=== PATIENT | male | born 1985 | race Caucasian/White ===

== ENCOUNTER 2019-09-14 20:53 | Inpatient (IN) | payer OTHER ==
[2019-09-14 21:53] LABS: Appearance,Urine Clear (Clear); Bilirubin,Urine Negative (Negative); Blood,Urine Negative (Negative); Color,Urine Light Yellow; Glucose,Urine (UA) Negative (Negative); Ketones,Urine Negative (Negative); Leukocyte Esterase,Urine Negative (Negative); Nitrite,Urine Negative (Negative); PH, Urine 6.5 (5.0-8.0); Protein,Urine Negative (Negative); Specific Gravity,Urine 1.003 (1.001-1.035); Urobilinogen,Urine <2.0 mg/dL (<2.0)
[2019-09-14 22:38] LABS: Amphetamine Screen,Urine Not Detected (NotDetected); Barbiturate Screen,Urine Not Detected (NotDetected); Benzodiazepines Screen,Urine Not Detected (NotDetected); Cocaine Screen,Urine Not Detected (NotDetected); Methadone Screen, Urine Not Detected (NotDetected); Opiate Screen,Urine Not Detected (NotDetected); Oxycodone Screen, Urine Not Detected (NotDetected); Phencyclidine Screen,Urine Not Detected (NotDetected); Tricyclic Antidepressant,Urine Not Detected (NotDetected); Urn Cannabinoid Scrn Not Detected (NotDetected)
--- NOTE | 2019-09-14 22:45 | ED ---
General Adult HPI - General Chief complaint: Psychiatric Symptoms Stated complaint: Mental Health Time Seen by Provider: 09/14/19 21:09 Source: patient, RN notes reviewed, old records reviewed Mode of arrival: ambulatory Limitations: no limitations - History of Present Illness Initial comments: 33-year-old male patient no pertinent past psychiatric history of present significant complaint approximately one week depression, suicidal ideations. Denies anything hurt himself or hurt any other people today. Denies any plan. Support. Alcohol and occasionally using marijuana. Denies any physical complaints. Systemic: Pt denies fatigue, fever/chills, rash. Pt denies weakness, night sweats, weight loss. Neuro: Pt denies headache, visual disturbances, syncope or pre-syncope. HEENT: Pt denies ocular discharge or irritation, otalgia, rhinorrhea, pharyngitis or notable lymphadenopathy. Cardiopulmonary: Pt denies chest pain, SOB, heart palpitations, dyspnea on exertion. Abdominal/GI: Pt denies abdominal pain, n/v/d. : Pt denies dysuria, burning w/ urination, frequency/urgency. Denies new onset urinary or bowel incontinence. MSK: Pt denies myalgia, loss of strength or function in extremities. Neuro: Pt denies new onset weakness, paresthesias. - Related Data Allergies Allergy/AdvReac Type Severity Reaction Status Date / Time No Known Allergies Allergy Verified 09/14/19 21:08 Review of Systems ROS Statement: Those systems with pertinent positive or pertinent negative responses have been documented in the HPI. ROS Other: All systems not noted in ROS Statement are negative. Past Medical History Past Medical History: No Reported History History of Any Multi-Drug Resistant Organisms: None Reported Past Surgical History: No Surgical Hx Reported Past Psychological History: Depression Smoking Status: Current every day smoker Past Alcohol Use History: Daily, Heavy Past Drug Use History: Marijuana General Exam - General Exam Comments Initial Comments: Constitutional: NAD, AOX3, Pt has pleasant affect. HEENT: NC/AT, trachea midline, neck supple, no lymphadenopathy. Posterior pharynx non erythematous, without exudates. External ears appear normal, without discharge. Mucous membranes moist. Eyes PERRLA, EOM intact. There is no scleral icterus. No pallor noted. Cardiopulmonary: RRR, no murmurs, rubs or gallops, no JVD noted. Lungs CTAB in anterior and posterior whittaker. Abdominal exam: Abdomen soft and non-distended. Abdomen non-tender to palpation in all 4 quadrants. Neuro: CN II-XII grossly intact. No nuchal rigidity. No raccon eyes, no mcmahon sign, no hemotympanum. No cervical spinal tenderness. MSK: No posterior calf tenderness bilaterally, homans sign negative bilaterally. Posterior tibialis and radial pulse +2 bilaterally. Sensation intact in upper and lower extremities. Full active ROM in upper and lower extremities, 5/5 stregnth. Limitations: no limitations Course Vital Signs 09/14/19 21:02 Temperature 98.1 F Pulse Rate 97 Respiratory 18 Rate Blood Pressure 146/95 O2 Sat by Pulse 98 Oximetry Medical Decision Making - Medical Decision Making 33-year-old male patient presents to ED for chief complaint of depression, suicidal ideations. Patient vital signs are stable, afebrile. Physical exam didn't display acute pathology. Patient evaluated EPS recommended for admission. Case discussed with Dr. Cordero. - Lab Data Lab Results 09/14/19 Range/Units 21:13 Urine Color Light Yellow Urine Appearance Clear (Clear) Urine pH 6.5 (5.0-8.0) Ur Specific [place] 1.003 (1.001-1.035) Urine Protein Negative (Negative) Urine Glucose (UA) Negative (Negative) Urine Ketones Negative (Negative) Urine Blood Negative (Negative) Urine Nitrite Negative (Negative) Urine Bilirubin Negative (Negative) Urine Urobilinogen <2.0 (<2.0) mg/dL Ur Leukocyte Esterase Negative (Negative) Urine Opiates Screen Not Detected (NotDetected) Ur Oxycodone Screen Not Detected (NotDetected) Urine Methadone Screen Not Detected (NotDetected) Ur Propoxyphene Screen Not Detected (NotDetected) Ur Barbiturates Screen Not Detected (NotDetected) U Tricyclic Antidepress Not Detected (NotDetected) Ur Phencyclidine Scrn Not Detected (NotDetected) Ur Amphetamines Screen Not Detected (NotDetected) U Methamphetamines Scrn Not Detected (NotDetected) U Benzodiazepines Scrn Not Detected (NotDetected) Urine Cocaine Screen Not Detected (NotDetected) U Marijuana (THC) Screen Not Detected (NotDetected) Disposition Clinical Impression: Depression Disposition: ADMITTED IP TO THIS HOSP Condition: Serious Is patient prescribed a controlled substance at d/c from ED?: No Referrals: None,Stated [Primary Care Provider] - 1-2 days
[2019-09-15] MEDS ORDERED: MAGNESIUM HYDROXIDE 2,400 MG/10 ML CUP PO PRN (01:20)
[2019-09-15] MEDS ORDERED: ACETAMINOPHEN TAB 325 MG TAB PO PRN (01:20)
[2019-09-15] MEDS ORDERED: LORazepam 1 MG TAB PO PRN (01:20)
[2019-09-15] MEDS ORDERED: ZIPRASIDONE 20 MG VIAL IM PRN (01:20)
[2019-09-15] MEDS ORDERED: LORazepam 2 MG/ML INJ IM PRN (01:23)
[2019-09-15] MEDS: NICOTINE 7MG/24HR PATCH TRANSDERM SCH (08:56)
[2019-09-15 09:50] LABS: Basophils # (A) 0.1 k/uL (0-0.2); Basophils % (A) 1 %; Eosinophils # (A) 0.1 k/uL (0-0.7); Eosinophils % (A) 1 %; HCT 50.9 % (39.0-53.0); Lymphocytes # (A) 1.3 k/uL (1.0-4.8); Lymphocytes % (A) 17 %; MCHC 33.4 g/dL (31.0-37.0); MCV 86.9 fL (80.0-100.0); Mean Platelet Volume 7.5; Monocytes # (A) 0.5 k/uL (0-1.0); Monocytes % (A) 7 %; Neutrophils # (A) 5.8 k/uL (1.3-7.7); Neutrophils % (A) 73 %; Platelet Count 320 k/uL (150-450); RBC 5.85 m/uL (4.30-5.90); RDW 12.1 % (11.5-15.5)
[2019-09-15 10:14] LABS: Albumin 4.9 g/dL (3.5-5.0); Calcium 10.7 mg/dL (8.4-10.2); Potassium 5.5 mmol/L (3.5-5.1); Total Protein 8.1 g/dL (6.3-8.2)
[2019-09-15] MEDS: SERTRALINE 50 MG TAB PO SCH (11:04)
[2019-09-15 12:38] VITALS: BMI 31.8
[2019-09-15] MEDS: MAG HYDROX/AL HYDROX/SIMETH 30 ML CUP PO PRN (16:35)
--- NOTE | 2019-09-15 16:45 | P.HP ---
Psychiatric H&P - . H&P Date: 09/15/19 History & Physical: IDENTIFYING DATA: The patient is a 33-year-old single male admitted to the psychiatric unit voluntarily with complaints of depression and suicidal ideation. HISTORY OF PRESENT ILLNESS: He described becoming increasingly depressed after breakup of a long-term relationship 5 months ago. He had living with his fianc for 5 years. 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 He became close to her youngest son and she accepted the short custody of his 9-year-old son. He talked about being happy and feeling that he has achieved the goals of his life of having a b usiness, long-term partner, family and home. However, she ended a relationship and asked him to leave the home when she learned that she had not an affair. He described a "indiscretions" where he became intoxicated with alcohol and Adderall at a wedding. He alleged she has little memory of the event. His fianc learned of the affair about one week afterwards. He has since been living with a friend. They speak on a daily basis and the relationship appears car trouble. However she no longer trusts him and does not want to resumed her former relationship. He described increasing feelings of depression, hopelessness, helplessness and worthlessness. He presented to ER because he's been experiencing more frequent and distressing suicidal thoughts. These thoughts are passive in nature where he wished that he were . He denied that he suicide intent or plan. Other depressive symptoms included lack of energy, decreased concentration, insomnia with photograph retoucher awakening, decreased energy and fatigue and persistent feelings of guilt and remorse. He denied experiencing such psychotic symptoms of hallucinations, paranoia, thought insertion etc. He described chronic feelings of tension that he relates to his early upbringing but denied periods of increased anxiety that reach crescendo consistent with a panic attack. He denied history of elevated mood or sustained irritability consistent with graciela or hypomania. He has history of heavy alcohol use but alleged that he has significantly cut down with his drinking since his separation with his fianc. He recently star yang smoking marijuana in the evening as a means to fall asleep. In the past, his fianc is complaining to him about his drinking. He denied that he is overwhelmed and morning to have a drink steady his nerves or "open his eyes". He is never been any substance abuse treatment program is never attended AA. He denied use of other drugs to get high, help her sleep or changes mood. PAST PSYCHIATRIC HISTORY: He has no history of mental health or psychiatric treatment. This is his first psychiatric hospitalization. PAST MEDICAL HISTORY: He has no major medical problems. ALLERGIES: No ALLERGIES SUBSTANCE USE HISTORY: He has never been substance abuse treatment program. FAMILY PSYCHIATRIC/SUBSTANCE USE HISTORY: His father has a history of depression and he alleges father was admitted to this unit for the treatment of depression and suicidal ideation. LEGAL HISTORY: Denied SOCIAL HISTORY: His parents when he was 10 years old. His mother left his father moved in with a 19-year-old man. His parents share joint custody until he was 18 years old when he lives with his father. He talked about his mother frequently moving and needing to change schools. He graduated from high school and completed trade program for [employer]. He is single and has one child out of wedlock. He shares joint custody. 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 MENTAL STATUS EXAM: He presented as a casually groomed 33-year-old male with multiple tattoos from the arms to the neck. He made eye contact and attended the interview. He had no prominent physical abnormalities. He had a distressed facial expression. He was alert and oriented to person, place and time. He showed psychomotor retardation but no abnormal movements. His gait was slow but steady. His speech was spontaneous with decreased rate, rhythm and volume. He had no articulation difficulties. His affect was depressed and unreactive. He describes suicidal ideation and wishes but denied intent or plan. He denied homicidal ideation. He expressed feelings of hopelessness, helplessness or worthlessness. He ruminated about his former relationship and h is sexual indiscretion. He did not express ideas reference, paranoid ideation or delusions. His thinking was abstract and associations were coherent, logical and goal directed. He denied hallucinations and did not appear to responding to internal stimuli. Global impression of intellect is average. He is aware of his mental health needs. STRENGTHS: Good physical health, stable employment, stable income, stable housing WEAKNESSES: Alcohol use, recent breakup of long-term relationship IMPRESSION: He has a 33-year-old male who presented to unit with a history of depression and depressive symptoms consistent with a major depressive disorder. The impression on [place] related to a specific stress involving the breakup of long-term relationship. He has no history of mental health treatment or psychiatric problems. He described a history of heavy alcohol use problems certain whether he met criteria for an alcohol use disorder. He should best be treated inpatient basis with combination of psychopharmacology and multimodal therapy. PRINCIPLE DIAGNOSIS: Depressed disorder severe single episode without psychosis, rule out alcohol use disorder RECOMMENDATION: Admitted to the psychiatric unit. Safety precautions. Consult medicine for initial physical exam and medical history. bag worker completed initial psychosocial assessment and coordinate discharge and aftercare. Begin Zoloft 50 mg daily and Seroquel 25 mg at bedtime and titrated according to clinical response and tolerance. Encourage participation in therapeutic groups and activities. Evaluate clinical status response to treatment daily basis. Allergies Allergy/AdvReac Type Severity Reaction Status Date / Time No Known Allergies Allergy Verified 09/14/19 23:57 Vital Signs Temp 98.8 F 09/15/19 06:58 Pulse 86 09/15/19 06:58 Resp 18 09/15/19 06:58 BP 110/65 09/15/19 06:58 Pulse Ox 98 09/14/19 23:58 Intake & Output 09/14/19 09/15/19 09/15/19 18:59 06:59 18:59 Weight 101.151 kg 100.5 kg Laboratory Last Values WBC 8.0 k/uL (3.8-10.6) 09/15/19 09:32 RBC 5.85 m/uL (4.30-5.90) 09/15/19 09:32 Hgb 17.0 gm/dL (13.0-17.5) 09/15/19 09:32 Hct 50.9 % (39.0-53.0) 09/15/19 09:32 MCV 86.9 fL (80.0-100.0) 09/15/19 09:32 MCH 29.0 pg (25.0-35.0) 09/15/19 09:32 MCHC 33.4 g/dL (31.0-37.0) 09/15/19 09:32 RDW 12.1 % (11.5-15.5) 09/15/19 09:32 Plt Count 320 k/uL (150-450) 09/15/19 09:32 Neutrophils % 73 % 09/15/19 09:32 Lymphocytes % 17 % 09/15/19 09:32 Monocytes % 7 % 09/15/19 09:32 Eosinophils % 1 % 09/15/19 09:32 Basophils % 1 % 09/15/19 09:32 Neutrophils # 5.8 k/uL (1.3-7.7) 09/15/19 09:32 Lymphocytes # 1.3 k/uL (1.0-4.8) 09/15/19 09:32 Monocytes # 0.5 k/uL (0-1.0) 09/15/19 09:32 Eosinophils # 0.1 k/uL (0-0.7) 09/15/19 09:32 Basophils # 0.1 k/uL (0-0.2) 09/15/19 09:32 Sodium 139 mmol/L (137-145) 09/15/19 09:32 Potassium 5.5 mmol/L (3.5-5.1) H 09/15/19 09:32 Chloride 100 mmol/L (98-107) 09/15/19 09:32 Carbon Dioxide 30 mmol/L (22-30) 09/15/19 09:32 Anion Gap 9 mmol/L 09/15/19 09:32 BUN 10 mg/dL (9-20) 09/15/19 09:32 Creatinine 1.25 mg/dL (0.66-1.25) 09/15/19 09:32 Est GFR (CKD-EPI)AfAm 89 (>60 ml/min/1.73 sqM) 09/15/19 09:32 Est GFR (CKD-EPI)NonAf 77 (>60 ml/min/1.73 sqM) 09/15/19 09:32 Glucose 95 mg/dL (74-99) 09/15/19 09:32 Calcium 10.7 mg/dL (8.4-10.2) H 09/15/19 09:32 Total Bilirubin 1.0 mg/dL (0.2-1.3) 09/15/19 09:32 AST 33 U/L (17-59) 09/15/19 09:32 ALT 30 U/L (4-49) 09/15/19 09:32 Alkaline Phosphatase 66 U/L (38-126) 09/15/19 09:32 Total Protein 8.1 g/dL (6.3-8.2) 09/15/19 09:32 Albumin 4.9 g/dL (3.5-5.0) 09/15/19 09:32 Urine Color Light Yellow 09/14/19 21:13 Urine Appearance Clear (Clear) 09/14/19 21:13 Urine pH 6.5 (5.0-8.0) 09/14/19 21:13 Ur Specific [place] 1.003 (1.001-1.035) 09/14/19 21:13 Urine Protein Negative (Negative) 09/14/19 21:13 Urine Glucose (UA) Negative (Negative) 09/14/19 21:13 Urine Ketones Negative (Negative) 09/14/19 21:13 Urine Blood Negative (Negative) 09/14/19 21:13 Urine Nitrite Negative (Negative) 09/14/19 21:13 Urine Bilirubin Negative (Negative) 09/14/19 21:13 Urine Urobilinogen <2.0 mg/dL (<2.0) 09/14/19 21:13 Ur Leukocyte Esterase Negative (Negative) 09/14/19 21:13 Urine Opiates Screen Not Detected (NotDetected) 09/14/19 21:13 Ur Oxycodone Screen Not Detected (NotDetected) 09/14/19 21:13 Urine Methadone Screen Not Detected (NotDetected) 09/14/19 21:13 Ur Propoxyphene Screen Not Detected (NotDetected) 09/14/19 21:13 Ur Barbiturates Screen Not Detected (NotDetected) 09/14/19 21:13 U Tricyclic Antidepress Not Detected (NotDetected) 09/14/19 21:13 Ur Phencyclidine Scrn Not Detected (NotDetected) 09/14/19 21:13 Ur Amphetamines Screen Not Detected (NotDetected) 09/14/19 21:13 U Methamphetamines Scrn Not Detected (NotDetected) 09/14/19 21:13 U Benzodiazepines Scrn Not Detected (NotDetected) 09/14/19 21:13 Urine Cocaine Screen Not Detected (NotDetected) 09/14/19 21:13 U Marijuana (THC) Screen Not Detected (NotDetected) 09/14/19 21:13 09/15/19 10:25
[2019-09-15 20:40] LABS: African American GFR (CKD) >90 (>60 ml/min/1.73 sqM); Anion Gap 8 mmol/L; Blood Urea Nitrogen 11 mg/dL (9-20); Calcium 10.1 mg/dL (8.4-10.2); Carbon Dioxide 28 mmol/L (22-30); Chloride 101 mmol/L (98-107); Glucose 112 mg/dL (74-99); Non-African American GFR(CKD) >90 (>60 ml/min/1.73 sqM); Potassium 4.4 mmol/L (3.5-5.1); Sodium 137 mmol/L (137-145)
[2019-09-15] MEDS: QUEtiapine 25 MG TAB PO SCH (21:48)
--- NOTE | 2019-09-15 22:03 | P.MDCNMH ---
History of Present Illness H&P Date: 09/15/19 Chief Complaint: medical evaluation 33 year old male no significant past medical history patient comes in voluntarily seeking help , due to depressed mood and suicidal ideation, never been diagnosed with mental health problems , does not take any medications at home. he currently denies any suicidal or homicidal ideation. he reports overwhelming social and financial issues at home currently denies any fever, chills, chest pain or trouble breathing, denies any abd pain nausea or vomiting . Review of Systems Pertinent positives as noted in HPI. All other systems were reviewed and are negative Past Medical History Past Medical History: No Reported History History of Any Multi-Drug Resistant Organisms: None Reported Past Surgical History: Hernia Repair Additional Past Surgical History / Comment(s): Hernia Repair Surgery as a child. Past Anesthesia/Blood Transfusion Reactions: No Reported Reaction Past Psychological History: Depression Smoking Status: Current every day smoker Past Alcohol Use History: Abuse, Daily, Heavy Additional Past Alcohol Use History / Comment(s): Pt. admits to daily alcohol use of about 6 beers per day. Past Drug Use History: Marijuana, Prescription Drug Abuse Additional Drug Use History / Comment(s): Pt. admits that he was over taking Adderral 5 months ago during a wedding. Pt. admits to marijuana use rare use. --UDS negative. - Past Family History Father Family Medical History: Myocardial Infarction ([place]) Additional Family Medical History / Comment(s): -Myocardial Infarction at the age of 5454 years old with cardiac stent placement. -Father has history of depression. Mother Additional Family Medical History / Comment(s): Anxiety/Depression. Patient's mother is alive but pt. does not know her age. Medications and Allergies Home Medications Medication Instructions Recorded Confirmed Type Ibuprofen [Motrin Ib] 800 mg PO BID PRN 09/14/19 09/15/19 History Allergies Allergy/AdvReac Type Severity Reaction Status Date / Time No Known Allergies Allergy Verified 09/14/19 23:57 Physical Exam Vitals: Vital Signs Temp Pulse Pulse Pulse Resp BP BP 09/15/19 06:58 98.8 F 86 18 110/65 09/14/19 23:58 97.2 F L 113 H 18 09/14/19 23:45 97.2 F L 113 H 18 09/14/19 23:21 97.7 F 103 H 18 138/97 09/14/19 21:02 98.1 F 97 18 146/95 BP Pulse Ox 09/15/19 06:58 09/14/19 23:58 138/86 98 09/14/19 23:45 138/86 98 09/14/19 23:21 96 09/14/19 21:02 98 Intake and Output 09/15/19 09/15/19 09/15/19 06:59 14:59 22:59 Other: Weight 101.151 kg 100.5 kg Constitutional: No acute distress, conversant, pleasant Eyes: Anicteric sclerae, moist conjunctiva, no lid-lag Pupils equal round reactive to light ENMT: NC/AT Oropharynx clear, no erythema, exudates Neck: Supple, FROM, no masses, or JVD No carotid bruits No thyromegaly Lungs: Clear to auscultation Clear to percussion Normal respiratory effort, no accessory muscle use Cardiovascular: Heart regular in rate and rhythm, No murmurs, gallops, or rubs No peripheral edema Abdominal: Soft Nontender, no guarding, rebound or rigidity Abdomen moving with respiration Normoactive bowel sounds No hepatomegaly, No splenomegaly No palpable mass No abdominal wall hernia noted Skin: Normal temperature, tone, texture, turgor No induration No subcutaneous nodules No rash, lesions No ulcers Extremities: No digital cyanosis No clubbing Pedal pulses intact and symmetrical Radial pulses intact and symmetrical No calf tenderness Psychiatric: Alert and oriented to person, place and time Appropriate affect fair judgement Neuro Muscles Strength 5/5 in all 4 extremities Sensation to light touch grossly present throughout Cranial nerves II-XII grossly intact No focal sensory deficits Lymphatics: no palpable cervical or supraclavicular , or inguinal lymph nodes Cranial Nerve Examination - Cranial Nerves Cranial Nerve II- Optic: Intact Cranial Nerve III- Oculomotor: Intact Cranial Nerve IV- Trochlear: Intact Cranial Nerve V- Trigeminal: Intact Cranial Nerve - Abducens: Intact Cranial Nerve VII- Facial: Intact Cranial Nerve VIII- Auditory: Intact Cranial Nerve IX- Glossopharyngeal: Intact Cranial Nerve X- Vagus: Intact Cranial Nerve XI- Accessory: Intact Cranial Nerve XII- Hypoglossal: Intact Results CBC & Chem 7: 09/15/19 09:32 09/15/19 20:11 Labs: Abnormal Lab Results - Last 24 Hours (Table) 02/09/20 Range/Units 09:32 Potassium 5.5 H (3.5-5.1) mmol/L Calcium 10.7 H (8.4-10.2) mg/dL Assessment and Plan Assessment: 33-year-old male no significant past medical history comes and voluntarily due to depression and suicidal ideation currently denies any medical complaints patient admits to smoking 1.5 pack a day, and quit drinking 2.5 weeks ago (used to drink 6 packs daily ) Plan: Depression and suicidal ideation Management per psych Suicide precautions Nicotine dependence Counseled to quit smoking Nicotine replacement therapy Mild hyperkalemia resolved Low risk for DVT patient is ambulatory Thank you for allowing us to participate in the care of this patient. We will follow peripherally. Do not hesitate to contact us with questions. Someone can be reached from the [facility] hospitalist group at all hours of the day at [phone].
[2019-09-16] MEDS: SERTRALINE 50 MG TAB PO SCH (08:47)
[2019-09-16] MEDS: NICOTINE 7MG/24HR PATCH TRANSDERM SCH (08:47)
--- NOTE | 2019-09-16 12:01 | P.PN ---
Subjective Progress Note Date: 09/16/19 Principal diagnosis: major depressive disorder single episode severe without psychosis, rule out alcohol use disorder, rule out bipolar disorder current episode depressed I reviewed the medical record, interviewed the patient and discuss his treatment and treatment plan during team meeting. He reported a marked decrease in anxiety and improvement in his moods admission to the unit. He slept well with Seroquel 25 mg. He is participating in therapeutic groups and activities. He has several visitors yesterday including his father and his ex-fiance. He had visits from several friends and described a very supportive friendship network. Before admission, his friends were telling him that he was "not okay" and he should "speak with someone." He was first offended but now recognizes that they had his best interest in mind. Objective - Vital Signs Vital signs: Vital Signs Temp 98.2 F 09/16/19 06:49 Pulse 74 09/16/19 06:49 Resp 18 09/16/19 06:49 BP 125/70 09/16/19 06:49 Pulse Ox 96 09/16/19 06:49 Intake & Output 09/15/19 09/16/19 09/16/19 18:59 06:59 18:59 Weight 100.5 kg - Exam He presented as a casually groomed and casually dressed 36-year-old male who was pleasant on approach. He made eye contact and attended the interview. He had prominent tattoos spread no physical abnormalities. He had a wanted but bright facial expression. He was alert and oriented to person, place and time. He showed no abnormality of psychomotor activity. He was not retarded nor agitated. His speech was spontaneous with normal rate, rhythm and volume. His affect was blunted but stable and appropriate. He denied suicidal ideation or wishes. He denied homicidal ideation. He denied feelings of hopelessness, helplessness and worthlessness. He feels more hopeful about the future and less distressed about his personal situation. He did not express ideas reference or paranoid ideation. His thinking was abstract and associations were coherent and logical. He denied hallucinations did not appear to be responding to internal stimuli. - Labs CBC & Chem 7: 09/15/19 09:32 09/15/19 20:11 Labs: Abnormal Lab Results - Last 24 Hours (Table) 09/15/19 Range/Units 20:11 Glucose 112 H (74-99) mg/dL Assessment and Plan Assessment: Overall he appears moderately mentally ill and much improved from admission. Plan: Continue treatment and treatment plan. Titrate Zoloft but according to clinical response and tolerance. behavioral health worker to coordinate discharge and aftercare services including referral for outpatient mental health services.
[2019-09-16] MEDS: QUEtiapine 25 MG TAB PO SCH (21:22)
[2019-09-16] MEDS: MAG HYDROX/AL HYDROX/SIMETH 30 ML CUP PO PRN (21:22)
[2019-09-17] MEDS: NICOTINE 7MG/24HR PATCH TRANSDERM SCH (09:06)
[2019-09-17] MEDS: SERTRALINE 50 MG TAB PO SCH (09:06)
--- NOTE | 2019-09-17 14:34 | P.PN ---
Subjective Progress Note Date: 09/17/19 Principal diagnosis: major depressive disorder single episode severe without psychosis, rule out alcohol use disorder, rule out bipolar disorder current episode depressed I reviewed the medical record, interviewed the patient and discuss his treatment and treatment plan during team meeting. He states he is feeling much better. Denied feeling depressed, anxious or having thoughts of or suicide. He does not have health insurance. He is uncertain whether she qualifies for Medicaid and is concerned about how he'll pay for this hospitalization. He can afford the prices listed on [employer] for his medications. He plans to pay out of pocket for outpatient mental health services. Objective - Vital Signs Vital signs: Vital Signs Temp 99.4 F 09/17/19 07:16 Pulse 84 09/17/19 07:16 Resp 18 09/17/19 07:16 BP 112/59 09/17/19 07:16 Pulse Ox 96 09/16/19 06:49 - Exam He was casually dressed and groomed. He made eye contact and attempted to interview. He had a bright facial expression. His speech was spontaneous with normal rate, rhythm and volume. His affect was bright, stable and appropriate. He denied suicidal homicidal ideation. He did not express ideas reference, paranoid ideation or delusional thoughts. His thinking was abstract, coherent and goal directed. He denied hallucinations did not appear to be responding to internal stimuli. - Labs CBC & Chem 7: 09/15/19 09:32 09/15/19 20:11 Assessment and Plan Assessment: He is much improved from admission Plan: Plan for discharge on 09/18/2019. Continue current treatment and treatment plan.
[2019-09-17] MEDS: QUEtiapine 25 MG TAB PO SCH (21:12)
[2019-09-18 06:35] VITALS: BP 131/71; PULSE 87; RESP 15; TEMP 98.9
[2019-09-18] MEDS: NICOTINE 7MG/24HR PATCH TRANSDERM SCH (08:44)
[2019-09-18] MEDS: SERTRALINE 50 MG TAB PO SCH (08:45)
--- NOTE | 2019-09-18 16:21 | P.DS ---
Providers Date of admission: 09/14/19 23:04 Attending physician: Barry Romano MD Consults: 09/15/19 01:20 Consult Physician Routine Consulting Provider: Violet Schmitt Consult Reason/Comments: Medical Management Do you want consulting provider notified?: Yes Primary care physician: Stated None - Discharge Diagnosis(es) (1) Suicidal ideation Status: Resolved Priority: Medium (2) Major depressive disorder, single episode, severe without psychosis Status: Resolved (3) Tobacco use Status: Chronic Priority: Medium Hospital Course: he patient is a 33-year-old single male admitted to the psychiatric unit voluntarily with complaints of depression and suicidal ideation. He described becoming increasingly depressed after breakup of a long-term relationship 5 months ago. He had living with his fianc for 5 years. 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 He became close to her youngest son and she accepted the short custody of his 9-year-old son. He talked about being happy and feeling that he has achieved the goals of his life of having a business, long-term partner, family and home. However, she ended a relationship and asked him to leave the home when she learned that she had not an affair. He described a "indiscretions" where he became intoxicated with alcohol and Adderall at a wedding. He alleged she has little memory of the event. His fianc learned of the affair about one week afterwards. He has since been living with a friend. They speak on a daily basis and the relationship appears car trouble. However she no longer trusts him and does not want to resumed her former relationship. He described increasing feelings of depression, hopelessness, helplessness and worthlessness. He presented to ER because he's been experiencing more frequent and distressing suicidal thoughts. These thoughts are passive in nature where he wished that he were . He denied that he suicide intent or plan. Other depressive symptoms included lack of energy, decreased concentration, insomnia with group burner machine awakening, decreased energy and fatigue and persistent feelings of guilt and remorse. He denied experiencing such psychotic symptoms of hallucinations, paranoia, thought insertion etc. He described chronic feelings of tension that he relates to his early upbringing but denied periods of increased anxiety that reach crescendo consistent with a panic attack. He denied history of elevated mood or sustained irritability consistent with graciela or hypomania. He has history of heavy alcohol use but alleged that he has significantly cut down with his drinking since his separation with his fianc. He recently started smoking marijuana in the evening as a means to fall asleep. In the past, his fianc is complaining to him about his drinking. He denied that he is overwhelmed and morning to have a drink steady his nerves or "open his eyes". He is never been any substance abuse treatment program is never attended AA. He denied use of other drugs to get high, help her sleep or changes mood. We admitted the psychiatric unit under care of this mortgage or loan underwriter. Provided a comprehensive biopsychosocial assessment. The library sales consultant theater set production designer completed initial physical exam and medical history and diagnosed nicotine dependence, mild hyperkalemia resolved and low risk for DVT. He started sertraline 50 mg daily for the treatment of depressive symptoms and "Seroquel 25 mg by mouth at bedtime for sleep. His mood quickly improved and he denied side effects to psychotropic medications. He reported a marked improvement in sleep. We discussed treatment and aftercare services and he is able to pay for medications out of pocket as well as outpatient mental health services. At time of discharge she presented as a casually groomed 33-year-old male who was pleasant on approach. He made eye contact and attended to interview. Multiple tattoos but no prominent physical abnormalities. He had a bright facial expression. He showed no abnormality of psychomotor activity. Speech was spontaneous with normal rate, rhythm and volume. His affect was stable, bright and appropriate. He denied suicidal ideation and wishes. He denied homicidal ideation. He denied feeling hopeless, helpless and worthless. He did not express ideas reference, paranoid ideation, magical ideation or delusions. His thinking was abstract and associations were coherent, logical and goal directed. He denied hallucinations and did not appear to be responding to internal stimuli. Patient Condition at Discharge: Stable Plan - Discharge Summary Discharge Rx Participant: No New Discharge Prescriptions: New QUEtiapine [SEROquel] 25 mg PO HS 30 Days #30 tab Sertraline [Zoloft] 50 mg PO DAILY 30 Days #30 tab Continue Ibuprofen [Motrin Ib] 800 mg PO BID PRN PRN Reason: Pain Discharge Medication List Ibuprofen [Motrin Ib] 800 mg PO BID PRN 09/14/19 [History] QUEtiapine [SEROquel] 25 mg PO HS 30 Days #30 tab 09/18/19 [Rx] Sertraline [Zoloft] 50 mg PO DAILY 30 Days #30 tab 09/18/19 [Rx] Follow up Appointment(s)/Referral(s): [facility] [Outside] - 09/19/19 8:30 am (walk in intake ) [facility] - 1 Week Patient Instructions/Handouts: How to Stop Smoking (DC), Depression (DC) Activity/Diet/Wound Care/Special Instructions: Activity and diet as tolerated. Avoid the use of street drugs and alcohol. Take all medications as prescribed. When you are in need of refills on your medications please contact your medical provider and/or outpatient psychiatrist to have this done. Please go to scheduled outpatient appointment for aftercare treatment. If symptoms return or become worse, call the crisis line at and/or go to the nearest emergency room for evaluation. Discharge Disposition: HOME SELF-CARE
== END 2019-09-18 13:26 | disposition home or self-care (01) | DRG 885 ==
LOC: EC 20:53 → 3MHU 23:04
PROVIDERS: ADMIT Psychiatry & Neurology Psychiatry; ATTEND Psychiatry & Neurology Psychiatry
DX: F32.2 Major depressive disorder, single episode, severe without psychotic features (principal); R45.851 Suicidal ideations; F17.200 Nicotine dependence, unspecified, uncomplicated; F41.9 Anxiety disorder, unspecified; F10.129 Alcohol abuse with intoxication, unspecified; E78.5 Hyperlipidemia, unspecified; F12.90 Cannabis use, unspecified, uncomplicated; Z79.899 Other long term (current) drug therapy; Z81.8 Family history of other mental and behavioral disorders
CPT/HCPCS: 80048; 80053; 80306; 81003; 82075; 83970; 84443; 85025; 99285

== ENCOUNTER 2019-10-11 00:21 | Emergency (ER) | payer OTHER ==
[2019-10-11 00:35] VITALS: RESP 20; TEMP 97.9
--- NOTE | 2019-10-11 00:46 | ED ---
Psych HPI - General Chief Complaint: Psychiatric Symptoms Stated Complaint: Suicidal Ideation Time Seen by Provider: 10/11/19 00:43 - History of Present Illness Initial Comments: Saroj is a pleasant 33-year-old male with a history of depression and anxiety for which she was hospitalized last month and subsequent discharged home. Since discharge patient has been following closely with [facility] and has been in contact with his psychiatrist. Patient felt that initially his dose of Zoloft was helping but recently he felt like he had it so his dose at been increased from 50-75. Patient has been compliant with these medications. Patient states that he had a had any alcohol since discharge until this evening he was drinking with his father. Patient states that things got out of hand and people were upset, he's not certain who but somebody contacted police who arrived on scene. Patient spoke with police who were agreeable with allowing the patient to go home with his brother however his father became very upset at this insisting that the patient needed to be evaluated by Hospital. Patient police decided the path of least resistance would be to agree to come to the hospital. Patient states that he feels like his depression and anxiety of been under control. He is following closely if his psychiatrist and therapist. He is compliant with medications. Patient states that he believes drinking was very poor decision he doesn't plan to continue to do so. Patient denies any suicidal or homicidal ideations. Patient denies any self-harm or intent to hurt himself or others. - Related Data Home Medications Medication Instructions Recorded Confirmed Ibuprofen [Motrin Ib] 800 mg PO BID PRN 09/14/19 09/15/19 Previous Rx's Medication Instructions Recorded QUEtiapine [SEROquel] 25 mg PO HS 30 Days #30 tab 09/18/19 Sertraline [Zoloft] 50 mg PO DAILY 30 Days #30 tab 09/18/19 Allergies Allergy/AdvReac Type Severity Reaction Status Date / Time No Known Allergies Allergy Verified 09/14/19 23:57 Review of Systems ROS Statement: Those systems with pertinent positive or pertinent negative responses have been documented in the HPI. ROS Other: All systems not noted in ROS Statement are negative. Past Medical History Past Medical History: No Reported History History of Any Multi-Drug Resistant Organisms: None Reported Past Surgical History: Hernia Repair Additional Past Surgical History / Comment(s): Hernia Repair Surgery as a child. Past Anesthesia/Blood Transfusion Reactions: No Reported Reaction Past Psychological History: Depression Smoking Status: Current every day smoker Past Alcohol Use History: Abuse, Daily, Heavy Additional Past Alcohol Use History / Comment(s): Pt. admits to daily alcohol use of about 6 beers per day. Past Drug Use History: Marijuana, Prescription Drug Abuse Additional Drug Use History / Comment(s): Pt. admits that he was over taking Adderral 5 months ago during a wedding. Pt. admits to marijuana use rare use. --UDS negative. - Past Family History Father Family Medical History: Myocardial Infarction ([place]) Additional Family Medical History / Comment(s): -Myocardial Infarction at the age of 5454 years old with cardiac stent placement. -Father has history of depression. Mother Additional Family Medical History / Comment(s): Anxiety/Depression. Patient's mother is alive but pt. does not know her age. General Exam - General Exam Comments Initial Comments: Physical Exam GENERAL: Patient is well-developed and well-nourished. Patient is nontoxic and well-hydrated and is in no distress. HENT: Normocephalic, Atraumatic. EYES: PERRL, EOMI PULMONARY: Unlabored respirations. CARDIOVASCULAR: RRR Warm and well perfused extremities ABDOMEN: Non-distended SKIN: No rashes or bruising : Deferred NEUROLOGIC: Alert and oriented Normal speech Normal gait MUSCULOSKELETAL: Moving all extremities with no apparent injury PSYCHIATRIC: No SI/HI Course Vital Signs 10/11/19 10/11/19 00:34 02:01 Temperature 97.9 F Pulse Rate 104 H 88 Respiratory 20 20 Rate Blood Pressure 140/103 114/68 O2 Sat by Pulse 99 98 Oximetry Medical Decision Making - Medical Decision Making The patient was seen and evaluated, history is obtained from the patient 33-year-old male with recently diagnosed depression and anxiety is brought to the ER today by EMS for evaluation per his father's request. There is neither father along at bedside. Patient is not petitioned. Patient does have breath alcohol of 0.12 but is clinically sober awake alert oriented appropriate not hallucinating, not distracted by internal stimuli, not psychotic, not paranoid. The patient was reevaluated once he had been here for 2 hours he is now sober, awake alert oriented appropriate continues to deny any suicidal homicidal thoughts. At this time I don't feel the patient requires an emergent evaluation by psychiatry. At this time patient's agreeable to plan for discharge home we'll contact his brother for a ride. - Lab Data Lab Results 10/11/19 Range/Units 00:30 Urine Opiates Screen Not Detected (NotDetected) Ur Oxycodone Screen Not Detected (NotDetected) Urine Methadone Screen Not Detected (NotDetected) Ur Propoxyphene Screen Not Detected (NotDetected) Ur Barbiturates Screen Not Detected (NotDetected) U Tricyclic Antidepress Not Detected (NotDetected) Ur Phencyclidine Scrn Not Detected (NotDetected) Ur Amphetamines Screen Not Detected (NotDetected) U Methamphetamines Scrn Not Detected (NotDetected) U Benzodiazepines Scrn Not Detected (NotDetected) Urine Cocaine Screen Not Detected (NotDetected) U Marijuana (THC) Screen Not Detected (NotDetected) Disposition Clinical Impression: Alcohol intoxication Disposition: HOME SELF-CARE Condition: Stable Additional Instructions: Continue following with [facility] for counseling and for your dep ression Contact her counselor tomorrow and let them know that you're in the emergency department today Avoid alcohol while you're taking antidepressives excellent return to the ER call 911 if you have any thoughts of depression self-harm or any new or concerning symptoms Is patient prescribed a controlled substance at d/c from ED?: No Referrals: None,Stated [Primary Care Provider] - 1-2 days
[2019-10-11 02:07] VITALS: BP 114/68; PULSE 88
[2019-10-11 03:54] LABS: Amphetamine Screen,Urine Not Detected (NotDetected); Barbiturate Screen,Urine Not Detected (NotDetected); Benzodiazepines Screen,Urine Not Detected (NotDetected); Cocaine Screen,Urine Not Detected (NotDetected); Methadone Screen, Urine Not Detected (NotDetected); Opiate Screen,Urine Not Detected (NotDetected); Oxycodone Screen, Urine Not Detected (NotDetected); Phencyclidine Screen,Urine Not Detected (NotDetected); Tricyclic Antidepressant,Urine Not Detected (NotDetected); Urn Cannabinoid Scrn Not Detected (NotDetected)
== END 2019-10-11 02:41 | disposition home or self-care (01) ==
LOC: EC 00:21
DX: F10.129 Alcohol abuse with intoxication, unspecified (principal); F17.200 Nicotine dependence, unspecified, uncomplicated
CPT/HCPCS: 80306; 82075; 99285

== ENCOUNTER 2019-10-14 21:30 | Inpatient (IN) | payer MEDICAID, OTHER ==
[2019-10-14 22:33] LABS: Amphetamine Screen,Urine Not Detected (NotDetected); Barbiturate Screen,Urine Not Detected (NotDetected); Benzodiazepines Screen,Urine Not Detected (NotDetected); Cocaine Screen,Urine Not Detected (NotDetected); Methadone Screen, Urine Not Detected (NotDetected); Opiate Screen,Urine Not Detected (NotDetected); Oxycodone Screen, Urine Not Detected (NotDetected); Phencyclidine Screen,Urine Not Detected (NotDetected); Tricyclic Antidepressant,Urine Not Detected (NotDetected); Urn Cannabinoid Scrn Not Detected (NotDetected)
--- NOTE | 2019-10-14 22:33 | ED ---
Psych HPI - General Chief Complaint: Psychiatric Symptoms Stated Complaint: mental issues Time Seen by Provider: 10/14/19 21:53 Source: patient Mode of arrival: ambulatory - History of Present Illness Initial Comments: This patient is a 33-year-old man who presents to have psychiatric evaluation. The patient states that his brother and father were concerned that he may be having an increase in suicidal thoughts and they wanted him to be seen tonight. The patient states he is not sure why they feel that way. He does admit some underlying depression and is receiving treatment for that. States that he doesn't feel particularly suicidal today and he doesn't recall making any statements tonight that would have led his family to believe he was going to harm himself. Patient does admit having some alcohol earlier. MD Complaint: feels depressed, other -: week(s) Associated Psychiatric Symptoms: depression History of same: Yes Quality: constant Improves With: none Worsens With: none Context: recent alcohol abuse Associated Symptoms: denies other symptoms - Related Data Home Medications Medication Instructions Recorded Confirmed Ibuprofen [Motrin Ib] 800 mg PO BID PRN 09/14/19 09/15/19 Previous Rx's Medication Instructions Recorded QUEtiapine [SEROquel] 25 mg PO HS 30 Days #30 tab 09/18/19 Sertraline [Zoloft] 50 mg PO DAILY 30 Days #30 tab 09/18/19 Allergies Allergy/AdvReac Type Severity Reaction Status Date / Time No Known Allergies Allergy Verified 10/14/19 21:43 Review of Systems ROS Statement: Those systems with pertinent positive or pertinent negative responses have been documented in the HPI. ROS Other: All systems not noted in ROS Statement are negative. Constitutional: Denies: fever, chills Respiratory: Denies: cough, dyspnea Cardiovascular: Denies: chest pain, syncope Gastrointestinal: Denies: abdominal pain, vomiting Genitourinary: Denies: dysuria Musculoskeletal: Denies: back pain Skin: Denies: rash Neurological: Denies: headache, weakness Psychiatric: Reports: depression. Denies: auditory hallucinations, homicidal thoughts, suicidal thoughts Past Medical History Past Medical History: No Reported History History of Any Multi-Drug Resistant Organisms: None Reported Past Surgical History: Hernia Repair Additional Past Surgical History / Comment(s): Hernia Repair Surgery as a child. Past Anesthesia/Blood Transfusion Reactions: No Reported Reaction Past Psychological History: Depression Smoking Status: Current every day smoker Past Alcohol Use History: Abuse, Daily, Heavy Past Drug Use History: Marijuana, Prescription Drug Abuse - Past Family History Father Family Medical History: Myocardial Infarction ([place]) Additional Family Medical History / Comment(s): -Myocardial Infarction at the age of 5454 years old with cardiac stent placement. -Father has history of depression. Mother Additional Family Medical History / Comment(s): Anxiety/Depression. Patient's mother is alive but pt. does not know her age. General Exam Limitations: no limitations General appearance: alert, in no apparent distress Head exam: Present: atraumatic, normocephalic Eye exam: Present: normal appearance. Absent: scleral icterus, conjunctival injection ENT exam: Present: normal oropharynx Respiratory exam: Present: normal lung sounds bilaterally. Absent: respiratory distress, wheezes, rales, rhonchi, stridor Cardiovascular Exam: Present: regular rate, normal rhythm, normal heart sounds. Absent: systolic murmur, diastolic murmur, rubs, gallop GI/Abdominal exam: Present: soft. Absent: tenderness, guarding, rebound Back exam: Present: normal inspection. Absent: CVA tenderness (R), CVA tenderness (L) Neurological exam: Present: alert Psychiatric exam: Present: normal affect, depressed. Absent: agitated, anxious, flat affect, manic, homicidal ideation, suicidal ideation Skin exam: Present: warm, dry, intact, normal color. Absent: rash Course Vital Signs 10/14/19 21:39 Temperature 97.5 F L Pulse Rate 104 H Respiratory 18 Rate Blood Pressure 120/78 O2 Sat by Pulse 98 Oximetry Medical Decision Making - Medical Decision Making Patient is a 33-year-old man here for psychiatric evaluation. The patient's father subsequently arrived and brought with him some text postings that were basically goodbye letters and in light of this new information, patient will be admitted for further psychiatric evaluation and treatment. - Lab Data Lab Results 10/14/19 Range/Units 21:35 Urine Opiates Screen Not Detected (NotDetected) Ur Oxycodone Screen Not Detected (NotDetected) Urine Methadone Screen Not Detected (NotDetected) Ur Propoxyphene Screen Not Detected (NotDetected) Ur Barbiturates Screen Not Detected (NotDetected) U Tricyclic Antidepress Not Detected (NotDetected) Ur Phencyclidine Scrn Not Detected (NotDetected) Ur Amphetamines Screen Not Detected (NotDetected) U Methamphetamines Scrn Not Detected (NotDetected) U Benzodiazepines Scrn Not Detected (NotDetected) Urine Cocaine Screen Not Detected (NotDetected) U Marijuana (THC) Screen Not Detected (NotDetected) Disposition Clinical Impression: Mood disorder Disposition: ADMITTED IP TO THIS [facility] Condition: Good Instructions (If sedation given, give patient instructions): Mood Disorders (ED) Is patient prescribed a controlled substance at d/c from ED?: No Referrals: None,Stated [Primary Care Provider] - 1-2 days
[2019-10-15] MEDS ORDERED: ZIPRASIDONE 20 MG VIAL IM PRN (03:13)
[2019-10-15] MEDS ORDERED: MAGNESIUM HYDROXIDE 2,400 MG/10 ML CUP PO PRN (03:13)
[2019-10-15] MEDS ORDERED: MAG HYDROX/AL HYDROX/SIMETH 30 ML CUP PO PRN (03:13)
[2019-10-15] MEDS ORDERED: ACETAMINOPHEN TAB 325 MG TAB PO PRN (03:13)
[2019-10-15] MEDS: NICOTINE 14MG/24HR PATCH TRANSDERM SCH (09:23)
--- NOTE | 2019-10-15 15:19 | P.HP ---
Psychiatric H&P - . H&P Date: 10/15/19 History & Physical: IDENTIFYING DATA: The patient is 33-year-old single male admitted to the psychiatric unit involuntarily. His father completed the petition that read "suicidal attempt, threats of suicide. Expresses that he doesn't want to live anymore." HISTORY OF PRESENT ILLNESS: I reviewed the medical record, interviewed the patient and spoke with his father and telephone. He was discharged from this unit on 09/15/2019 with a diagnosis of suicidal ideation, major depressive disorder and tobacco use disorder. His father and brother brought him to emergency room and his father completed a petition when the EPS nurse initially recommended discharged to outpatient care. His father stated that on last week (10/11/2019) he brought him to the emergency room because he had sent a text message to several friends and family (approximately 30 people). His father send me a copy of the text messages that read: "Dad I hurt my best friend. I've hurt her for years. I can't take it any longer. I wish I could change this but I can't. I wish I didn't have to go but I do. Thank you for everything. Thank you for life. And I know this is going to cause some pain but just know mine will be gone. Know that I will be in a better place. I wish I could get better but I can't and as long as I'm alive I'll keep hurting her. Know it's not going to hurt and I'm not going to be in pain anymore. Please sell all my stuff and make proper arrangements for Steffen. He deserves a better dad. I have to go know. Thank you for life again. I hope I made you proud for as long as I been around." He appeared not to have been evaluated EPS when he came to the on 10/11/2019. The physician opined that the patient's presentation was related to the recent alcohol use and recommended discharged to outpatient care. His father stated that Michael went to his [facility] appointment yesterday. After appointment he complained of feeling unwell. About an hour and a half after the [facility] visit his father received a call from mutual friend. Apparently Saroj sent a text message to his friend that he "can't weather the storm any longer and was going to kill himself." His father and brother found him at home drinking beer. He told them they does not want to live anymore and to leave him alone and that so that he could "go". His father is concerned because Michael had minimized his distress to the [facility] nurse in the emergency room. During our interview he minimizes the circumstances that led to this hospitalization. He alleged that his father and his brother overreacted to his distress. He was drinking and thinking about the lost relationship. He denied that he expressed suicidal thoughts to either his brother or his father. PAST PSYCHIATRIC HISTORY: He had one prior admission to this unit in September 26. According to the [facility] liaison he kept all scheduled aftercare appointments. PAST MEDICAL HISTORY: None ALLERGIES: No ALLERGIES SUBSTANCE USE HISTORY: He has history of heavy alcohol use but alleged that he has significantly cut down with his drinking since his separation with his fianc. He recently started smoking marijuana in the evening as a means to fall asleep. In the past, his fianc is complaining to him about his drinking. He denied that he is overwhelmed and morning to have a drink steady his nerves or "open his eyes". He is never been any substance abuse treatment program is never attended AA. He denied use of other drugs to get high, help her sleep or changes mood. He has not participated in a substance abuse treatment program FAMILY PSYCHIATRIC/SUBSTANCE USE HISTORY: His father has a history of depression and he alleges father was admitted to this unit for the treatment of depression and suicidal ideation. LEGAL HISTORY: Denied SOCIAL HISTORY: His parents when he was 10 years old. His mother left his father moved in with a 19-year-old man. His parents share joint custody until he was 18 years old when he lives with his father. He talked about his mother frequently moving and needing to change schools. He graduated from high school and completed trade program for welding. He is single and has one child out of wedlock. He shares joint custody. 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 MENTAL STATUS EXAM: He presented as a casually groomed 33-year-old male with multiple tattoos from the arms to the neck. He made eye contact and attended the interview. He had no prominent physical abnormalities. He had a distressed facial expression. He was alert and oriented to person, place and time. He showed psychomotor retardation but no abnormal movements. His gait was slow but steady. His speech was spontaneous with decreased rate, rhythm and volume. He had no articulation difficulties. His affect was depressed and unreactive. He describes suicidal ideation and wishes but denied intent or plan. He denied homicidal ideation. He expressed feelings of hopelessness, helplessness or worthlessness. He ruminated about his former relationship. He did not express ideas reference, paranoid ideation or delusions. His thinking was abstract and associations were coherent, logical and goal directed. He denied hallucinations and did not appear to responding to internal stimuli. Global impression of intellect is average. He is aware of his mental health needs. STRENGTHS: Good physical health, stable employment, stable income, stable housing WEAKNESSES: Alcohol use, recent breakup of long-term relationship IMPRESSION: Is a single 33-year-old male who has a history of alcohol use disorder and a depressive disorder. He presented to unit involuntarily with suicidal ideation. This is his [facility] presentation to the [facility] in 1 week for suicidal ideation. His father provided a copy of a suicide note that he sent to friends and family last week. This admission was prompted by continued suicidal thoughts. I don't believe that he is being honest about his distress and is minimizing the severity of his suicidal thoughts. He should be treated inpatient basis with a combination of psychopharmacology and multimodal therapy. PRINCIPLE DIAGNOSIS: Suicidal ideation, Major depressive disorder recurrent severe without psychotic features, alcohol use disorder RECOMMENDATION: Admitted to the psychiatric unit. Proceed with involuntary hospitalization. Safety precautions. Consult medicine for initial physical exam and medical history. tire worker completed initial psychosocial assessment and coordinate discharge and aftercare. Increase Zoloft to 100 mg mg daily and Seroquel to 50 mg at bedtime and titrated according to clinical response and tolerance. Encourage participation in therapeutic groups and activities. Evaluate clinical status response to treatment daily basis. Allergies Allergy/AdvReac Type Severity Reaction Status Date / Time No Known Allergies Allergy Verified 10/15/19 03:12 Vital Signs Temp 98.2 F 10/15/19 03:35 Pulse 89 10/15/19 03:35 Resp 14 10/15/19 03:35 BP 124/81 10/15/19 03:35 Pulse Ox 94 L 10/15/19 03:35 Intake & Output 10/14/19 10/15/1920 18:59 06:59 18:59 Weight 100.045 kg Laboratory Last Values Urine Opiates Screen Not Detected (NotDetected) 10/14/19 21:35 Ur Oxycodone Screen Not Detected (NotDetected) 10/14/19 21:35 Urine Methadone Screen Not Detected (NotDetected) 10/14/19 21:35 Ur Propoxyphene Screen Not Detected (NotDetected) 10/14/19 21:35 Ur Barbiturates Screen Not Detected (NotDetected) 10/14/19 21:35 U Tricyclic Antidepress Not Detected (NotDetected) 10/14/19 21:35 Ur Phencyclidine Scrn Not Detected (NotDetected) 10/14/19 21:35 Ur Amphetamines Screen Not Detected (NotDetected) 10/14/19 21:35 U Methamphetamines Scrn Not Detected (NotDetected) 10/14/19 21:35 U Benzodiazepines Scrn Not Detected (NotDetected) 10/14/19 21:35 Urine Cocaine Screen Not Detected (NotDetected) 10/14/19 21:35 U Marijuana (THC) Screen Not Detected (NotDetected) 10/14/19 21:35 10/15/19 13:05 10/15/19 13:42 10/15/19 15:17
[2019-10-15] MEDS: LORazepam 1 MG TAB PO PRN (17:47)
[2019-10-15] MEDS ORDERED: QUEtiapine 50 MG TAB PO SCH (21:00)
[2019-10-16 07:10] VITALS: RESP 16
[2019-10-16 08:46] LABS: Basophils % (A) 0 %; Eosinophils # (A) 0.1 k/uL (0-0.7); Eosinophils % (A) 1 %; HCT 47.7 % (39.0-53.0); HGB 15.6 gm/dL (13.0-17.5); Lymphocytes # (A) 1.9 k/uL (1.0-4.8); Lymphocytes % (A) 27 %; MCH 28.5 pg (25.0-35.0); MCHC 32.7 g/dL (31.0-37.0); Mean Platelet Volume 7.4; Monocytes # (A) 0.5 k/uL (0-1.0); Monocytes % (A) 7 %; Neutrophils # (A) 4.2 k/uL (1.3-7.7); Neutrophils % (A) 62 %; Platelet Count 299 k/uL (150-450); RBC 5.49 m/uL (4.30-5.90); WBC 6.8 k/uL (3.8-10.6)
[2019-10-16 09:07] LABS: ALT 32 U/L (4-49); AST 36 U/L (17-59); African American GFR (CKD) >90 (>60 ml/min/1.73 sqM); Albumin 4.2 g/dL (3.5-5.0); Alkaline Phosphatase 62 U/L (38-126); Anion Gap 5 mmol/L; Blood Urea Nitrogen 7 mg/dL (9-20); Calcium 9.6 mg/dL (8.4-10.2); Carbon Dioxide 28 mmol/L (22-30); Chloride 105 mmol/L (98-107); Cholesterol 199 mg/dL (<200); Glucose 97 mg/dL (74-99); HDL Cholesterol 48 mg/dL (40-60); LDL Cholesterol,Calculated 100 mg/dL (0-99); Non-African American GFR(CKD) 87 (>60 ml/min/1.73 sqM); Potassium 4.8 mmol/L (3.5-5.1); Sodium 138 mmol/L (137-145); Total Bilirubin 0.3 mg/dL (0.2-1.3); Triglycerides 253 mg/dL (<150)
[2019-10-16] MEDS: SERTRALINE 100 MG TAB PO SCH (09:31)
[2019-10-16] MEDS: NICOTINE 14MG/24HR PATCH TRANSDERM SCH (09:31)
[2019-10-16 11:48] LABS: Bilirubin,Unconjugated 0.3 mg/dL (0.0-1.1)
--- NOTE | 2019-10-16 14:47 | P.PN ---
Subjective Progress Note Date: 10/16/19 Principal diagnosis: Suicidal ideation, Major depressive disorder recurrent severe without psychotic features, alcohol use disorder I reviewed the medical record, interviewed the patient and discuss his treatment and treatment plan during team meeting. He denied feeling depressed or having thoughts of or suicide. We discussed the suicide notes that he sent to his father and his friend's (his father sent me a copy of the texts). He wrote the messages last when he was intoxicated. He alleges that he does well except when he is intoxicated. He denied that he would have attempted suicide and alleged that he did not have a plan. He perseverated on the break up of his relationship with his fiance. He asked for the opportunity to speak with his brother and father about his emotional distress. Objective - Vital Signs Vital signs: Vital Signs Temp 97.8 F 10/16/19 06:40 Pulse 77 10/16/19 06:40 Resp 16 10/16/19 06:40 BP 108/65 10/16/19 06:40 Pulse Ox 94 L 10/15/19 03:35 - Exam He is casually dressed and groomed. He made eye contact and attended to. His affect was bright. His thinking was organized, coherent and goal directed. He denied feeling hopeless, helpless or worthless. He was not tense, nervous her apprehensive. - Labs CBC & Chem 7: 10/16/19 08:09 10/16/19 08:09 Labs: Abnormal Lab Results - Last 24 Hours (Table) 10/16/19 Range/Units 08:09 BUN 7 L (9-20) mg/dL Triglycerides 253 H (<150) mg/dL LDL Cholesterol, Calc 100 H (0-99) mg/dL Assessment and Plan Assessment: He does not appear significantly depressed or anxious. He admits to writing the suicide but denied that he had a plan or intent. Alcohol use seems to be a problem since both breakup of his relationship and the suicidality occurs when he is intoxicated. Plan: Continue inpatient treatment. He will meet with an workers compensation attorney regarding the involuntary hospitalization. Continue Zoloft 100 mg daily but decrease Seroquel to 25 mg at bedtime. Discuss scheduling a family meeting during team meeting.
[2019-10-16] MEDS: LORazepam 1 MG TAB PO PRN (14:48)
[2019-10-16 18:11] LABS: Hemoglobin A1C 5.5 % (4.0-6.0)
[2019-10-16] MEDS: QUEtiapine 25 MG TAB PO SCH (20:16)
[2019-10-17] MEDS: NICOTINE 14MG/24HR PATCH TRANSDERM SCH (08:10)
[2019-10-17] MEDS: SERTRALINE 100 MG TAB PO SCH (08:10)
[2019-10-17] MEDS: LORazepam 1 MG TAB PO PRN ×2 (09:16→18:25)
--- NOTE | 2019-10-17 14:15 | P.PN ---
Subjective Progress Note Date: 10/17/19 Principal diagnosis: Suicidal ideation, Major depressive disorder recurrent severe without psychotic features, alcohol use disorder I reviewed the medical record, interviewed the patient and discuss his treatment and treatment plan during team meeting. He denies feeling depressed or having thoughts of or suicide. He believes that his family misinterpreted him and remains interested in the family meeting. I spoke to the social professionals and she is in the process of organizing the family meeting. He does not believe that he has an alcohol use problem and is not interested in substance abuse treatment. Objective - Vital Signs Vital signs: Vital Signs Temp 97.9 F 10/17/19 06:42 Pulse 72 10/17/19 06:42 Resp 16 10/17/19 06:42 BP 113/66 10/17/19 06:42 Pulse Ox 94 L 10/15/19 03:35 - Exam He is casually dressed and groomed. He made eye contact and attended to. His affect was bright. His thinking was organized, coherent and goal directed. He denied feeling hopeless, helpless or worthless. He was not tense, nervous her apprehensive. - Labs CBC & Chem 7: 10/16/19 08:09 10/16/19 08:09 Assessment and Plan Assessment: He does not appear significantly depressed or anxious. He admits to writing the suicide but denied that he had a plan or intent. Alcohol use seems to be a problem since both breakup of his relationship and the suicidality occurs when he is intoxicated. Plan: Continue current medications. Social work to organize a family meeting with father and brother. Continue discussion of alcohol use and relationship with his alcohol use and his suicidal thinking. Time with Patient: Less than 30
[2019-10-17] MEDS: QUEtiapine 25 MG TAB PO SCH (20:33)
[2019-10-18 06:49] VITALS: BP 122/69; PULSE 67; TEMP 98.1
[2019-10-18] MEDS: LORazepam 1 MG TAB PO PRN (08:24)
[2019-10-18] MEDS: SERTRALINE 100 MG TAB PO SCH (08:24)
[2019-10-18] MEDS: NICOTINE 14MG/24HR PATCH TRANSDERM SCH (08:42)
== END 2019-10-18 13:03 | disposition home or self-care (01) | DRG 885 ==
LOC: EC 21:30 → 3MHU 10-15 03:02
PROVIDERS: ADMIT Psychiatry & Neurology Psychiatry; ATTEND Psychiatry & Neurology Psychiatry
DX: F33.2 Major depressive disorder, recurrent severe without psychotic features (principal); R45.851 Suicidal ideations; F17.200 Nicotine dependence, unspecified, uncomplicated; F10.10 Alcohol abuse, uncomplicated; Z79.899 Other long term (current) drug therapy; Z81.8 Family history of other mental and behavioral disorders; Z82.49 Family history of ischemic heart disease and other diseases of the circulatory system
CPT/HCPCS: 80053; 80061; 80306; 82075; 82248; 83036; 84443; 85025; 99285

== ENCOUNTER 2019-11-18 22:42 | Emergency (ER) | payer OTHER ==
[2019-11-18 22:50] VITALS: RESP 18
--- NOTE | 2019-11-19 00:12 | ED ---
Alcohol HPI - General Chief Complaint: Alcohol Stated Complaint: Mental health Source: patient, RN notes reviewed, old records reviewed Mode of arrival: ambulatory Limitations: no limitations - History of Present Illness Initial Comments: This is a 34-year-old male with alcohol use and history of alcohol abuse coming in for alcohol intoxication give her resources and help. Patient is not acutely going through withdrawal. Patient states he is not going through withdrawal before with her seizures. Patient does need to stop drinking not homicidal or suicidal no other drug abuse MD Complaint: alcohol intoxication, alcohol dependence, desires rehab Last Drink: just [employer] -: hour(s) Previous Visits for Alcohol Intoxication?: No Recent Trauma: Yes Associated Symptoms: denies other symptoms Treatments Prior to Arrival: none Chronic Alcohol Use: Yes - Related Data Home Medications Medication Instructions Recorded Confirmed Ibuprofen [Motrin Ib] 800 mg PO BID PRN 09/14/19 10/15/19 Previous Rx's Medication Instructions Recorded QUEtiapine [SEROquel] 25 mg PO HS 30 Days #30 tab 10/18/19 Sertraline [Zoloft] 100 mg PO DAILY #30 tab 10/18/19 Allergies Allergy/AdvReac Type Severity Reaction Status Date / Time No Known Allergies Allergy Verified 10/15/19 03:12 Review of Systems ROS Statement: Those systems with pertinent positive or pertinent negative responses have been documented in the HPI. ROS Other: All systems not noted in ROS Statement are negative. Past Medical History Past Medical History: No Reported History History of Any Multi-Drug Resistant Organisms: None Reported Past Surgical History: Hernia Repair Additional Past Surgical History / Comment(s): Hernia Repair Surgery as a child. Past Anesthesia/Blood Transfusion Reactions: No Reported Reaction Past Psychological History: Depression Smoking Status: Current every day smoker Past Alcohol Use History: Abuse, Daily, Heavy Past Drug Use History: Marijuana, Prescription Drug Abuse - Past Family History Father Family Medical History: Myocardial Infarction ([place]) Additional Family Medical History / Comment(s): -Myocardial Infarction at the age of 5454 years old with cardiac stent placement. -Father has history of depression. Mother Additional Family Medical History / Comment(s): Anxiety/Depression. Patient's mother is alive but pt. does not know her age. General Exam Limitations: no limitations General appearance: alert, in no apparent distress Head exam: Present: atraumatic, normocephalic, normal inspection Eye exam: Present: normal appearance, PERRL, EOMI. Absent: scleral icterus, conjunctival injection, periorbital swelling ENT exam: Present: normal exam, mucous membranes moist Neck exam: Present: normal inspection. Absent: tenderness, meningismus, lymphadenopathy Respiratory exam: Present: normal lung sounds bilaterally. Absent: respiratory distress, wheezes, rales, rhonchi, stridor Cardiovascular Exam: Present: regular rate, normal rhythm, normal heart sounds. Absent: systolic murmur, diastolic murmur, rubs, gallop, clicks GI/Abdominal exam: Present: soft, normal bowel sounds. Absent: distended, tenderness, guarding, rebound, rigid Extremities exam: Present: normal inspection, full ROM, normal capillary refill. Absent: tenderness, pedal edema, joint swelling, calf tenderness Back exam: Present: normal inspection Neurological exam: Present: alert, oriented X3, CN II-XII intact Psychiatric exam: Present: normal affect, normal mood Skin exam: Present: warm, dry, intact, normal color. Absent: rash Course Vital Signs 11/18/19 22:46 Temperature 97.7 F Pulse Rate 111 H Respiratory 18 Rate Blood Pressure 128/79 O2 Sat by Pulse 98 Oximetry - Reevaluation(s) Reevaluation #1: 11/19/19 00:28 Medical records reviewed Reevaluation #2: 11/19/19 00:28 Patient informed here in the emergency department of inability to place for rehab, patient given resource list here for signs of alcohol withdrawal Reevaluation #3: 11/19/19 00:28 On reassessment patient still remains not homicidal or suicidal 11/19/19 00:28 Patient is not acutely intoxicated able ambulate thinking clearly Medical Decision Making - Medical Decision Making 32 male DF for evaluation desiring a second or alcohol abuse. Patient given resources and can be discharged home Disposition Clinical Impression: Depression, Alcoholic intoxication, Alcohol abuse Disposition: HOME SELF-CARE Condition: Fair Instructions (If sedation given, give patient instructions): Abuse of Alcohol (ED) Is patient prescribed a controlled substance at d/c from ED?: No Referrals: None,Stated [Primary Care Provider] - 1-2 days
[2019-11-19 00:46] VITALS: BP 130/75; PULSE 98; TEMP 98
== END 2019-11-19 01:00 | disposition home or self-care (01) ==
LOC: EC 22:42
DX: F10.129 Alcohol abuse with intoxication, unspecified (principal); F32.9 Major depressive disorder, single episode, unspecified; F17.200 Nicotine dependence, unspecified, uncomplicated
CPT/HCPCS: 82075; 99284

== ENCOUNTER 2020-04-25 13:54 | Emergency (ER) | payer MEDICAID, OTHER ==
[2020-04-25 13:59] VITALS: RESP 18
[2020-04-25] MEDS ORDERED: ERYTHROMYCIN 5 MG/GM OPHTH OINT 1 GM TUBE BOTH EYES STA (14:07)
[2020-04-25] MEDS ORDERED: PROPARACAINE 0.5% OPHTH DROPS 15 ML BTL LEFT EYE STA (14:07)
[2020-04-25] MEDS ORDERED: FLUORESCEIN STRIPS 1 MG STRIP LEFT EYE STA (14:07)
--- NOTE | 2020-04-25 14:52 | ED ---
General Adult HPI - General Chief complaint: Eye Problems Stated complaint: L Eye Problem Source: patient, RN notes reviewed Mode of arrival: ambulatory Limitations: no limitations - History of Present Illness Initial comments: 34-year-old male presents to the emergency room for a chief complaint of foreign body in the left eye. Patient reports that yesterday he was grinding metal when he felt that he is going to his left eye. Patient states he was hoping it would come out but it did not. Therefore he presented today to the emergency room. Patient states it is irritating. He denies visual changes. Tetanus is up-to-date within the past 5 years. Patient denies any other injuries.Patient has no other complaints at this time including shortness of breath, chest pain, abdominal pain, nausea or vomiting, headache, or visual changes. - Related Data Home Medications Medication Instructions Recorded Confirmed Ibuprofen [Motrin Ib] 800 mg PO BID PRN 09/14/19 10/15/19 Previous Rx's Medication Instructions Recorded QUEtiapine [SEROquel] 25 mg PO HS 30 Days #30 tab 10/18/19 Sertraline [Zoloft] 100 mg PO DAILY #30 tab 10/18/19 Erythromycin Ophth Oint [Romycin 1 applic RIGHT EYE QID 7 Days #10 04/25/20 Ophth Oint] gm Allergies Allergy/AdvReac Type Severity Reaction Status Date / Time No Known Allergies Allergy Verified 04/25/20 13:59 Review of Systems ROS Statement: Those systems with pertinent positive or pertinent negative responses have been documented in the HPI. ROS Other: All systems not noted in ROS Statement are negative. Past Medical History Past Medical History: No Reported History History of Any Multi-Drug Resistant Organisms: None Reported Past Surgical History: Hernia Repair Additional Past Surgical History / Comment(s): Hernia Repair Surgery as a child. Past Anesthesia/Blood Transfusion Reactions: No Reported Reaction Past Psychological History: Depression Smoking Status: Current every day smoker Past Alcohol Use History: Abuse, Daily, Heavy Past Drug Use History: Marijuana, Prescription Drug Abuse - Past Family History Father Family Medical History: Myocardial Infarction ([place]) Additional Family Medical History / Comment(s): -Myocardial Infarction at the age of 5454 years old with cardiac stent placement. -Father has history of dep ression. Mother Additional Family Medical History / Comment(s): Anxiety/Depression. Patient's mother is alive but pt. does not know her age. General Exam Limitations: no limitations General appearance: alert, in no apparent distress Head exam: Present: atraumatic, normocephalic, normal inspection Eye exam: Present: PERRL, EOMI, other (Patient has a small corneal foreign body noted at about 2:00). Absent: scleral icterus, conjunctival injection, per iorbital swelling ENT exam: Present: normal exam, mucous membranes moist Neck exam: Present: normal inspection. Absent: tenderness, meningismus, lymp hadenopathy Respiratory exam: Present: normal lung sounds bilaterally. Absent: respiratory distress, wheezes, rales, rhonchi, stridor Cardiovascular Exam: Present: regular rate, normal rhythm, normal heart sounds. Absent: systolic murmur, diastolic murmur, rubs, gallop, clicks Course Vital Signs 04/25/20 13:57 Temperature 98.4 F Pulse Rate 100 Respiratory 18 Rate Blood Pressure 132/69 O2 Sat by Pulse 99 Oximetry Medical Decision Making - Medical Decision Making I was able to remove foreign body with a Q-tip however a rust ring remained. I therefore used Margarito brush to remove rust ring. I do believe I was able to remove all of rust string but I still want him to follow up with ophthalmology to ensure the resolution of the rust ring. I did stain the eye with fluorescein stain and visualized with the Wood's lamp. Negative Sawyer sign. No evidence of any other foreign bodies or abrasions. Patient does not wear contacts. He was started on erythromycin ointment. He will follow up with ophthalmology by calling for an appointment on Monday. He will return here if he has any worsening symptoms. Disposition Clinical Impression: Corneal foreign body Disposition: HOME SELF-CARE Condition: Good Instructions (If sedation given, give patient instructions): Eye Foreign Body (ED) Additional Instructions: Please apply antibiotic ointment as directed. Follow up with ophthalmology as you may still have part of rust ring in the eye. Call Monday for an appointment. If you have any worsening symptoms or visual changes return to the emergency room. Prescriptions: Erythromycin Ophth Oint [Romycin Ophth Oint] 1 applic RIGHT EYE QID 7 Days #10 gm Is patient prescribed a controlled substance at d/c from ED?: No Referrals: Zurdo Jamison MD [STAFF PHYSICIAN] - 1-2 days Time of Disposition: 14:50
[2020-04-25 15:20] VITALS: BP 134/88; PULSE 97; TEMP 98.8
== END 2020-04-25 15:20 | disposition home or self-care (01) ==
LOC: EC 13:54
DX: T15.02XA Foreign body in cornea, left eye, initial encounter (principal); F17.200 Nicotine dependence, unspecified, uncomplicated; Y93.89 Activity, other specified
CPT/HCPCS: 99283